=== PATIENT | male | born 1960 | race Caucasian/White ===

== ENCOUNTER 2024-05-09 20:45 | Inpatient (IN) | payer MEDICARE, OTHER ==
[~2024-05-09] VITALS: Ht 177.8 cm; Wt 74.8 kg
[2024-05-09 22:51] LABS: APPEARANCE,URINE CLEAR (CLEAR); BILIRUBIN,URINE NEGATIVE (NEGATIVE); BLOOD, URINE NEGATIVE Ery/uL (NEGATIVE); COLOR,URINE YELLOW (YELLOW); KETONES,URINE NEGATIVE (NEGATIVE); LEUKOCYTE ESTERASE ,URINE NEGATIVE (NEGATIVE); NITRITE, URINE NEGATIVE (NEGATIVE); PROTEIN,URINE NEGATIVE (NEGATIVE); UGLUCOSE NEGATIVE (NEGATIVE); UROBILINOGEN,URINE 0.2 EU/dL (0.2)
[2024-05-09 23:04] LABS: AMPHETAMINE, URINE NEGATIVE (NEGATIVE); BARBITURATE, URINE NEGATIVE (NEGATIVE); BENZODIAZEPINE, URINE NEGATIVE (NEGATIVE); CANNABINOID, URINE NEGATIVE (NEGATIVE); COCCAINE, URINE NEGATIVE (NEGATIVE); OPIATE, URINE NEGATIVE (NEGATIVE); PHENCYCLIDINE SCREEN,URINE NEGATIVE (NEGATIVE)
[2024-05-09] MEDS ORDERED: TRAZ-182 PO (23:35)
[2024-05-09] MEDS ORDERED: CARB1CAP7 PO (23:35)
[2024-05-09] MEDS ORDERED: MONT10TA22 PO (23:35)
[2024-05-10] MEDS ORDERED: TEMAZEPAM 7.5 MG CAPSULE PO PRN (01:30)
[2024-05-10] MEDS ORDERED: LORAZEPAM 0.5 MG TABLET PO PRN (01:30)
[2024-05-10] MEDS ORDERED: MAGNESIUM HYDROXIDE 30 ML UDC PO PRN (01:30)
[2024-05-10] MEDS ORDERED: ACETAMINOPHEN 325 MG TABLET PO PRN (01:30)
[2024-05-10] MEDS ORDERED: MAG HYDROX/AL HYDROX/SIMETH 30 ML UDC PO PRN (01:30)
[2024-05-10] MEDS: BLOOD SUGAR DIAGNOSTIC 1 EACH STRIP IN ONE (02:52)
[2024-05-10 08:00] VITALS: BP 154/87; TEMP 97.6; O2SAT 97
[2024-05-10 13:05] LABS: LACTIC ACID 0.9 mmol/L (0.4-2.0)
[2024-05-10] MEDS: LEVODOPA PO SCH (13:06)
[2024-05-10] MEDS: CARBIDOPA PO SCH (13:06)
[2024-05-10] MEDS: [UNRECOGNIZED DRUG - OTHER] PO SCH (13:06)
[2024-05-10] MEDS: DIVALPROEX SODIUM 125 MG TABLET.DR PO SCH (13:07)
[2024-05-10 13:51] LABS: BASOPHILS % (AUTO) 0.5 % (0.0-2.0); EOSINOPHILS % (AUTO) 0.4 % (0.0-6.0); HEMATOCRIT 43 % (39-51); HEMOGLOBIN 14.3 g/dL (13.5-17.5); LYMPHOCYTES # (AUTO) 1.3 K/uL (0.8-4.8); LYMPHOCYTES % (AUTO) 16.6 % (20.0-44.0); MEAN CORPUSCULAR HEMOGLOBIN 29 PG (26.0-33.0); MEAN CORPUSCULAR HGB CONC 34 g/dl (31.0-36.0); MEAN CORPUSCULAR VOLUME 87 fL (80-96); MONOCYTES # (AUTO) 0.6 K/uL (0.1-1.30); MONOCYTES % (AUTO) 7.3 % (2.0-12.0); NEUTROPHILS # (AUTO) 5.8 K/uL (1.8-8.9); NEUTROPHILS % (AUTO) 75.2 % (43.0-81.0); PLATELET COUNT (AUTO) 232 K/uL (150-450); RED BLOOD CELL COUNT(AUTO) 4.87 MIL/uL (4.5-6.0); RED CELL DISTRIBUTION WIDTH 13.6 % (11.5-15.0); WHITE BLOOD COUNT (AUTO) 7.7 K/uL (4.3-11.0)
[2024-05-10 16:00] VITALS: BP 124/90; TEMP 97.6; O2SAT 99
[2024-05-10 20:00] VITALS: BP 153/81; TEMP 97.8; O2SAT 99
[2024-05-10] MEDS: MONTELUKAST SODIUM (10MG) 10 MG TABLET PO SCH (21:37)
[2024-05-10] MEDS: QUETIAPINE FUMARATE 25 MG TABLET PO SCH (21:37)
[2024-05-11 07:07] LABS: BASOPHILS % (AUTO) 0.2 % (0.0-2.0); HEMATOCRIT 42 % (39-51); HEMOGLOBIN 14.2 g/dL (13.5-17.5); LYMPHOCYTES % (AUTO) 8.7 % (20.0-44.0); MEAN CORPUSCULAR HEMOGLOBIN 29 PG (26.0-33.0); MEAN CORPUSCULAR HGB CONC 34 g/dl (31.0-36.0); MEAN CORPUSCULAR VOLUME 87 fL (80-96); MONOCYTES # (AUTO) 0.5 K/uL (0.1-1.30); MONOCYTES % (AUTO) 4.5 % (2.0-12.0); NEUTROPHILS # (AUTO) 9.9 K/uL (1.8-8.9); NEUTROPHILS % (AUTO) 86.6 % (43.0-81.0); PLATELET COUNT (AUTO) 223 K/uL (150-450); RED BLOOD CELL COUNT(AUTO) 4.83 MIL/uL (4.5-6.0); RED CELL DISTRIBUTION WIDTH 13.5 % (11.5-15.0); WHITE BLOOD COUNT (AUTO) 11.4 K/uL (4.3-11.0)
[2024-05-11 07:12] LABS: CALCIUM, SERUM 9.1 mg/dL (8.5-10.1); CREATININE 0.8 mg/dL (0.6-1.3); POTASSIUM 4.2 mmol/L (3.5-5.1)
[2024-05-11 08:00] VITALS: BP_SYST 100; BP_SYST 150; BP_DIAS 59; BP_DIAS 93; TEMP 98; O2SAT 100; O2SAT 98
[2024-05-11 16:00] VITALS: BP 100/59; TEMP 98; O2SAT 100
[2024-05-11 19:18] LABS: BASOPHILS # (AUTO) 0.1 K/uL (0.0-0.2); BASOPHILS % (AUTO) 0.4 % (0.0-2.0); HEMATOCRIT 46 % (39-51); HEMOGLOBIN 15.3 g/dL (13.5-17.5); LYMPHOCYTES # (AUTO) 1.2 K/uL (0.8-4.8); LYMPHOCYTES % (AUTO) 7.2 % (20.0-44.0); MEAN CORPUSCULAR HEMOGLOBIN 30 PG (26.0-33.0); MEAN CORPUSCULAR HGB CONC 33 g/dl (31.0-36.0); MEAN CORPUSCULAR VOLUME 88 fL (80-96); MONOCYTES # (AUTO) 1.1 K/uL (0.1-1.30); MONOCYTES % (AUTO) 6.9 % (2.0-12.0); NEUTROPHILS # (AUTO) 13.7 K/uL (1.8-8.9); NEUTROPHILS % (AUTO) 85.5 % (43.0-81.0); PLATELET COUNT (AUTO) 250 K/uL (150-450); RED BLOOD CELL COUNT(AUTO) 5.18 MIL/uL (4.5-6.0); WHITE BLOOD COUNT (AUTO) 16.1 K/uL (4.3-11.0)
[2024-05-11 19:29] LABS: CALCIUM, SERUM 9.3 mg/dL (8.5-10.1); POTASSIUM 4.3 mmol/L (3.5-5.1)
[2024-05-11 21:11] VITALS: BP_SYST 110; BP_SYST 121; BP_DIAS 75; BP_DIAS 85; TEMP 98; TEMP 98.8; O2SAT 93; O2SAT 98
[2024-05-12] MEDS: IV NS 0.9% 1,000 ML BAG IV ONE (00:13)
[2024-05-12] MEDS: LEVOFLOXACIN (250MG) 250 MG TABLET PO SCH (00:17)
[2024-05-12 01:24] LABS: APPEARANCE,URINE CLEAR (CLEAR); BILIRUBIN,URINE 1+ (NEGATIVE); BLOOD, URINE NEGATIVE Ery/uL (NEGATIVE); COLOR,URINE YELLOW (YELLOW); KETONES,URINE 1+ mg/dL (NEGATIVE); LEUKOCYTE ESTERASE ,URINE NEGATIVE (NEGATIVE); NITRITE, URINE NEGATIVE (NEGATIVE); PROTEIN,URINE TRACE mg/dl (NEGATIVE); UGLUCOSE NEGATIVE (NEGATIVE)
[2024-05-12 01:51] LABS: ADD URINE CULTURE NO; BACTERIA,URINE None seen /HPF (None Seen); MUCUS,URINE Few /LPF (None Seen); RBC,URINE NONE SEEN /HPF (0-2); SQUAMOUS EPITHELIAL CELL,UR None Seen /HPF (None Seen); WBC,URINE NONE SEEN /HPF (0-3)
[2024-05-12 05:54] VITALS: BP 121/75; TEMP 98.8; O2SAT 98
[2024-05-12 08:24] VITALS: BP 134/80; TEMP 97.2; O2SAT 97
[2024-05-12 16:02] VITALS: BP 129/63; TEMP 97.9; O2SAT 95
[2024-05-12] MEDS: ENSURE ENLIVE 237 ML LIQUID (VANILLA) PO SCH (17:19)
[2024-05-12] MEDS: IV LR 1000 ML 1,000 ML IV ONE (19:53)
[2024-05-12 20:00] VITALS: BP 140/92; TEMP 97.6; O2SAT 95
[2024-05-12 20:19] VITALS: BP 140/92; TEMP 97.9; O2SAT 95
[2024-05-13 08:00] VITALS: BP 133/70; TEMP 98.8; O2SAT 98
[2024-05-13 09:33] LABS: BASOPHILS % (AUTO) 0.6 % (0.0-2.0); EOSINOPHILS % (AUTO) 0.5 % (0.0-6.0); HEMATOCRIT 41 % (39-51); HEMOGLOBIN 13.5 g/dL (13.5-17.5); LYMPHOCYTES # (AUTO) 1.1 K/uL (0.8-4.8); LYMPHOCYTES % (AUTO) 14.1 % (20.0-44.0); MEAN CORPUSCULAR HEMOGLOBIN 29 PG (26.0-33.0); MEAN CORPUSCULAR HGB CONC 33 g/dl (31.0-36.0); MEAN CORPUSCULAR VOLUME 89 fL (80-96); MONOCYTES # (AUTO) 0.6 K/uL (0.1-1.30); MONOCYTES % (AUTO) 8.5 % (2.0-12.0); NEUTROPHILS # (AUTO) 5.8 K/uL (1.8-8.9); NEUTROPHILS % (AUTO) 76.3 % (43.0-81.0); PLATELET COUNT (AUTO) 182 K/uL (150-450); RED BLOOD CELL COUNT(AUTO) 4.59 MIL/uL (4.5-6.0); RED CELL DISTRIBUTION WIDTH 13.7 % (11.5-15.0); WHITE BLOOD COUNT (AUTO) 7.6 K/uL (4.3-11.0)
[2024-05-13 10:04] LABS: ALBUMIN 3.1 g/dL (3.4-5.0); BILIRUBIN,TOTAL 0.9 mg/dL (0.2-1.0); CALCIUM, SERUM 8.8 mg/dL (8.5-10.1); CREATININE 0.6 mg/dL (0.6-1.3); POTASSIUM 3.7 mmol/L (3.5-5.1)
[2024-05-13] MEDS ORDERED: DIVA125T32 PO (13:29)
[2024-05-13] MEDS ORDERED: MAG30ORA PO (13:29)
[2024-05-13] MEDS ORDERED: TEMA7.5C12 PO (13:29)
[2024-05-13] MEDS ORDERED: NORM10004 IV (13:29)
[2024-05-13] MEDS ORDERED: LEVO500T90 PO (13:29)
[2024-05-13] MEDS ORDERED: QUET25TA PO (13:29)
[2024-05-13] MEDS ORDERED: LACT-246 PO (13:29)
[2024-05-13] MEDS ORDERED: [UNRECOGNIZED DRUG - CODE] IV (13:29)
[2024-05-13] MEDS ORDERED: MAGN400O6 PO (13:29)
[2024-05-13] MEDS ORDERED: ACET-868 PO (13:29)
[2024-05-13] MEDS ORDERED: LORA-258 PO (13:29)
== END 2024-05-13 13:18 | disposition short-term general hospital (02) | DRG 885 ==
LOC: ER 21:08 → GPS 23:51
PROVIDERS: ADMIT Psychiatry & Neurology Psychosomatic Medicine; ATTEND Student in an Organized Health Care Education/Training Program
DX: F29 Unspecified psychosis not due to a substance or known physiological condition (principal); F02.83 Dementia in other diseases classified elsewhere, unspecified severity, with mood disturbance; F02.82 Dementia in other diseases classified elsewhere, unspecified severity, with psychotic disturbance; J21.9 Acute bronchiolitis, unspecified; G20.A1 Parkinson's disease without dyskinesia, without mention of fluctuations; Z73.6 Limitation of activities due to disability; F39 Unspecified mood [affective] disorder; J45.909 Unspecified asthma, uncomplicated
CPT/HCPCS: 36415; 71045-TC; 80048-TC; 80053-TC; 80061-TC; 81001; 82550-TC; 82553; 82962-TC; 83605-TC; 84443-TC; 85025-TC; 87081-TC; 92526; 92611-TC; 97110-TC; 97116-TC; 97530-TC; A4223; A4349; J7030; J7120

== ENCOUNTER 2024-05-13 13:04 | Inpatient (IN) | payer MEDICARE, OTHER ==
[~2024-05-13] VITALS: Ht 177.8 cm; Wt 78.0 kg
[~2024-05-13 13:04] MED LIST: CARB1CAP7 PO; MONT10TA22 PO
[2024-05-13] MEDS ORDERED: QUET25TA PO (13:29)
[2024-05-13] MEDS ORDERED: MAG30ORA PO (13:29)
[2024-05-13] MEDS ORDERED: [UNRECOGNIZED DRUG - CODE] IV (13:29)
[2024-05-13] MEDS ORDERED: LACT-246 PO (13:29)
[2024-05-13] MEDS ORDERED: MAGN400O6 PO (13:29)
[2024-05-13] MEDS ORDERED: ACET-868 PO (13:29)
[2024-05-13] MEDS ORDERED: NORM10004 IV (13:29)
[2024-05-13] MEDS ORDERED: LORA-258 PO (13:29)
[2024-05-13] MEDS ORDERED: DIVA125T32 PO (13:29)
[2024-05-13] MEDS ORDERED: TEMA7.5C12 PO (13:29)
[2024-05-13] MEDS ORDERED: LEVO500T90 PO (13:29)
[2024-05-13 15:42] VITALS: BP 119/67; TEMP 97.7; O2SAT 97
[2024-05-13 16:00] VITALS: BP 109/91; TEMP 98.2; O2SAT 99
[2024-05-13] MEDS ORDERED: ONDANSETRON HCL/PF 4 MG/2 ML VIAL IVP PRN (16:30)
[2024-05-13] MEDS: ALBUTEROL FS 2.5 MG/3 ML VIAL.NEB NEB SCH (16:30)
[2024-05-13] MEDS ORDERED: ACETAMINOPHEN 325 MG TABLET PO PRN (16:30)
[2024-05-13] MEDS ORDERED: Z GUARD REMEDY 4 OZ OINT TP PRN (16:30)
[2024-05-13] MEDS: IPRATROPIUM NEB FS 0.5 MG/2.5 ML AMPUL.NEB NEB SCH (16:30)
[2024-05-13] MEDS: CARBIDOPA/LEV CR 50/200 MG 1 UDTAB.SA PO SCH (17:00)
[2024-05-13] MEDS: DOXYCYCLINE 100 MG in IV D5W 100 ML IV SCH (17:08)
[2024-05-13] MEDS: ENOXAPARIN SODIUM 40 MG/0.4 ML DISP.SYRIN SQ SCH (17:23)
[2024-05-13] MEDS: DIVALPROEX SODIUM 125 MG TABLET.DR PO SCH (17:24)
[2024-05-13] MEDS: ENSURE ENLIVE 237 ML LIQUID (VANILLA) PO SCH (18:22)
[2024-05-13] MEDS: CEFTRIAXONE 1 G in IV D5W 50 ML IV SCH (18:24)
[2024-05-13 19:20] VITALS: O2SAT 97
[2024-05-13 19:31] VITALS: O2SAT 97
[2024-05-13 19:33] VITALS: O2SAT 98
[2024-05-13 20:00] VITALS: BP 112/76; TEMP 97.8; O2SAT 100
[2024-05-13] MEDS: IV NS 0.9% 1,000 ML IV PRN (20:46)
[2024-05-13] MEDS: QUETIAPINE FUMARATE 25 MG TABLET PO SCH (21:08)
[2024-05-13] MEDS: MONTELUKAST SODIUM (10MG) 10 MG TABLET PO SCH (21:08)
[2024-05-13] MEDS ORDERED: TEMAZEPAM 7.5 MG CAPSULE PO PRN (22:00)
[2024-05-14] VITALS (7 sets, daily range): BP systolic 121–130; BP diastolic 73–86; TEMP 98.1–98.2; O2SAT 95–100
[2024-05-14 06:39] LABS: BASOPHILS % (AUTO) 0.4 % (0.0-2.0); EOSINOPHILS % (AUTO) 0.6 % (0.0-6.0); HEMATOCRIT 38 % (39-51); HEMOGLOBIN 12.9 g/dL (13.5-17.5); LYMPHOCYTES % (AUTO) 14.3 % (20.0-44.0); MEAN CORPUSCULAR HEMOGLOBIN 30 PG (26.0-33.0); MEAN CORPUSCULAR HGB CONC 34 g/dl (31.0-36.0); MEAN CORPUSCULAR VOLUME 88 fL (80-96); MONOCYTES # (AUTO) 0.5 K/uL (0.1-1.30); MONOCYTES % (AUTO) 7.6 % (2.0-12.0); NEUTROPHILS # (AUTO) 5.2 K/uL (1.8-8.9); NEUTROPHILS % (AUTO) 77.1 % (43.0-81.0); PLATELET COUNT (AUTO) 168 K/uL (150-450); RED BLOOD CELL COUNT(AUTO) 4.29 MIL/uL (4.5-6.0); RED CELL DISTRIBUTION WIDTH 13.5 % (11.5-15.0); WHITE BLOOD COUNT (AUTO) 6.8 K/uL (4.3-11.0)
[2024-05-14 07:07] LABS: CALCIUM, SERUM 8.8 mg/dL (8.5-10.1); CREATININE 0.6 mg/dL (0.6-1.3); MAGNESIUM 2.2 mg/dL (1.8-2.4); PHOSPHORUS 3.3 mg/dL (2.5-4.9); POTASSIUM 3.8 mmol/L (3.5-5.1)
[2024-05-14 08:13] LABS: THYROID STIMULATING HORMONE 0.76 uIU/mL (0.358-3.74)
[2024-05-14] MEDS: PANTOPRAZOLE 40 MG TABLET.DR PO SCH (08:45)
[2024-05-14] MEDS: risperiDONE 0.25 MG TABLET PO SCH (10:30)
[2024-05-14] MEDS: DOXYCYCLINE HYCLATE (100 MG) 100 MG TABLET PO SCH (22:08)
[2024-05-15 07:00] VITALS: BP 161/97; TEMP 98.1; O2SAT 100
[2024-05-15 07:42] VITALS: O2SAT 98
[2024-05-15] MEDS ORDERED: CLONIDINE HCL 0.1 MG TABLET PO PRN (10:00)
[2024-05-15 11:04] LABS: BASOPHILS % (AUTO) 0.4 % (0.0-2.0); EOSINOPHILS # (AUTO) 0.1 K/uL (0.0-0.7); EOSINOPHILS % (AUTO) 1.2 % (0.0-6.0); HEMATOCRIT 42 % (39-51); LYMPHOCYTES # (AUTO) 1.3 K/uL (0.8-4.8); LYMPHOCYTES % (AUTO) 19.5 % (20.0-44.0); MEAN CORPUSCULAR HEMOGLOBIN 29 PG (26.0-33.0); MEAN CORPUSCULAR HGB CONC 33 g/dl (31.0-36.0); MEAN CORPUSCULAR VOLUME 88 fL (80-96); MONOCYTES # (AUTO) 0.5 K/uL (0.1-1.30); MONOCYTES % (AUTO) 7.7 % (2.0-12.0); NEUTROPHILS # (AUTO) 4.6 K/uL (1.8-8.9); NEUTROPHILS % (AUTO) 71.2 % (43.0-81.0); PLATELET COUNT (AUTO) 192 K/uL (150-450); RED BLOOD CELL COUNT(AUTO) 4.77 MIL/uL (4.5-6.0); RED CELL DISTRIBUTION WIDTH 13.3 % (11.5-15.0); WHITE BLOOD COUNT (AUTO) 6.5 K/uL (4.3-11.0)
[2024-05-15 11:33] LABS: CALCIUM, SERUM 9.2 mg/dL (8.5-10.1); CREATININE 0.7 mg/dL (0.6-1.3); MAGNESIUM 2.1 mg/dL (1.8-2.4); PHOSPHORUS 2.4 mg/dL (2.5-4.9); POTASSIUM 3.4 mmol/L (3.5-5.1)
[2024-05-15 16:00] VITALS: BP 95/84; TEMP 97.7; O2SAT 98
[2024-05-15] MEDS: K PHOS NEUTRAL 250 MG TABLET PO ONE (16:14)
[2024-05-15] MEDS: POTASSIUM CHLORIDE 20 MEQ TAB.PRT.SR PO ONE (17:49)
[2024-05-15] MEDS ORDERED: LORAZEPAM INJ 2 MG/ML VIAL IM PRN (18:30)
[2024-05-15] MEDS: LORAZEPAM INJ 2 MG/ML VIAL IM ONE (18:53)
[2024-05-15 20:00] VITALS: BP 97/69; TEMP 97.7; O2SAT 100
[2024-05-15 20:01] VITALS: O2SAT 99
[2024-05-15 23:18] VITALS: O2SAT 99
[2024-05-16 07:02] LABS: BASOPHILS % (AUTO) 0.5 % (0.0-2.0); EOSINOPHILS # (AUTO) 0.1 K/uL (0.0-0.7); EOSINOPHILS % (AUTO) 1.7 % (0.0-6.0); HEMATOCRIT 42 % (39-51); LYMPHOCYTES # (AUTO) 0.9 K/uL (0.8-4.8); LYMPHOCYTES % (AUTO) 18.2 % (20.0-44.0); MEAN CORPUSCULAR HEMOGLOBIN 29 PG (26.0-33.0); MEAN CORPUSCULAR HGB CONC 34 g/dl (31.0-36.0); MEAN CORPUSCULAR VOLUME 86 fL (80-96); MONOCYTES # (AUTO) 0.4 K/uL (0.1-1.30); MONOCYTES % (AUTO) 8.3 % (2.0-12.0); NEUTROPHILS # (AUTO) 3.6 K/uL (1.8-8.9); NEUTROPHILS % (AUTO) 71.3 % (43.0-81.0); PLATELET COUNT (AUTO) 173 K/uL (150-450); RED BLOOD CELL COUNT(AUTO) 4.81 MIL/uL (4.5-6.0); RED CELL DISTRIBUTION WIDTH 13.2 % (11.5-15.0)
[2024-05-16 07:20] LABS: CALCIUM, SERUM 9.1 mg/dL (8.5-10.1); CREATININE 0.5 mg/dL (0.6-1.3); POTASSIUM 3.3 mmol/L (3.5-5.1)
[2024-05-16 10:26] VITALS: BP 143/90; TEMP 97.5; O2SAT 99
[2024-05-16] MEDS: risperiDONE 1 MG TABLET PO SCH (12:44)
[2024-05-16] MEDS: POTASSIUM CHLORIDE 20 MEQ TAB.PRT.SR PO SCH (14:29)
[2024-05-16] MEDS: LORAZEPAM 1 MG TABLET PO PRN (15:06)
[2024-05-16] MEDS ORDERED: OLANZAPINE 10 MG VIAL IM PRN (16:00)
[2024-05-16] MEDS ORDERED: PANT40TA49 PO (19:16)
[2024-05-16] MEDS ORDERED: ALBU2.5V13 NEB (19:16)
[2024-05-16] MEDS ORDERED: DOXY100T2 PO (19:16)
[2024-05-16] MEDS ORDERED: IPRA0.2S49 IH (19:16)
[2024-05-16] MEDS ORDERED: ENOX40DI SQ (19:16)
[2024-05-16] MEDS ORDERED: RISP0.5T65 PO (19:23)
== END 2024-05-16 18:24 | DRG 202 ==
LOC: MED 13:04
PROVIDERS: ADMIT Nurse Practitioner Acute Care; ATTEND Internal Medicine
DX: J20.9 Acute bronchitis, unspecified (principal); J96.01 Acute respiratory failure with hypoxia; F02.82 Dementia in other diseases classified elsewhere, unspecified severity, with psychotic disturbance; F02.83 Dementia in other diseases classified elsewhere, unspecified severity, with mood disturbance; G20.A1 Parkinson's disease without dyskinesia, without mention of fluctuations; E86.0 Dehydration; Z87.81 Personal history of (healed) traumatic fracture
CPT/HCPCS: 36415; 36600; 71045-TC; 80048-TC; 80061-TC; 82803-TC; 83540-TC; 83735-TC; 84100-TC; 84443-TC; 85025-TC; 92526; 92611-TC; 94760-TC; 94762-TC; 94799-TC; A4223; G0378; J0696; J1650; J2060; J3490; J7030; J7050; J7060

== ENCOUNTER 2024-05-16 18:36 | Inpatient (IN) | payer MEDICARE, OTHER ==
[~2024-05-16] VITALS: Ht 177.8 cm; Wt 78.0 kg
[~2024-05-16 18:36] MED LIST changes: +ACET-868 PO; +DIVA125T32 PO; +LACT-246 PO; +LEVO500T90 PO; +LORA-258 PO; +MAG30ORA PO; +MAGN400O6 PO; +NORM10004 IV; +QUET25TA PO; +TEMA7.5C12 PO; +[UNRECOGNIZED DRUG - CODE] IV
[2024-05-16] MEDS ORDERED: ACETAMINOPHEN 325 MG TABLET PO PRN (19:00)
[2024-05-16] MEDS ORDERED: MAG HYDROX/AL HYDROX/SIMETH 30 ML UDC PO PRN (19:00)
[2024-05-16] MEDS ORDERED: MAGNESIUM HYDROXIDE 30 ML UDC PO PRN (19:00)
[2024-05-16] MEDS ORDERED: TEMAZEPAM 7.5 MG CAPSULE PO PRN ×2 (19:00→22:00)
[2024-05-16] MEDS ORDERED: LORAZEPAM 0.5 MG TABLET PO PRN ×2 (19:00→22:00)
[2024-05-16 19:03] VITALS: BP 90/66; TEMP 97.5; O2SAT 97
[2024-05-16] MEDS ORDERED: ENOX40DI SQ (19:16)
[2024-05-16] MEDS ORDERED: ALBU2.5V13 NEB (19:16)
[2024-05-16] MEDS ORDERED: PANT40TA49 PO (19:16)
[2024-05-16] MEDS ORDERED: DOXY100T2 PO (19:16)
[2024-05-16] MEDS ORDERED: IPRA0.2S49 IH (19:16)
[2024-05-16] MEDS ORDERED: RISP0.5T65 PO (19:23)
[2024-05-16] MEDS: BLOOD SUGAR DIAGNOSTIC 1 EACH STRIP IN ONE (19:53)
[2024-05-16 20:00] VITALS: BP 118/77; TEMP 98.6; O2SAT 98
[2024-05-16] MEDS: ENSURE ENLIVE 237 ML LIQUID (VANILLA) PO SCH (22:00)
[2024-05-16] MEDS ORDERED: IPRATROPIUM NEB FS 0.5 MG/2.5 ML AMPUL.NEB IH SCH (22:00)
[2024-05-16] MEDS ORDERED: ALBUTEROL FS 2.5 MG/0.5 ML VIAL.NEB NEB SCH (22:00)
[2024-05-16] MEDS ORDERED: risperiDONE 0.25 MG TABLET PO SCH (23:30)
[2024-05-16] MEDS: MONTELUKAST SODIUM (10MG) 10 MG TABLET PO SCH (23:32)
[2024-05-16] MEDS: DIVALPROEX SODIUM 125 MG TABLET.DR PO SCH (23:33)
[2024-05-17] MEDS: ALBUTEROL FS 2.5 MG/0.5 ML VIAL.NEB NEB SCH (04:28)
[2024-05-17] MEDS: IPRATROPIUM NEB FS 0.5 MG/2.5 ML AMPUL.NEB IH SCH (04:28)
[2024-05-17] MEDS ORDERED: Z GUARD REMEDY 4 OZ OINT TP PRN (05:30)
[2024-05-17 08:00] VITALS: BP 145/92; TEMP 98; O2SAT 100
[2024-05-17 08:02] LABS: CREATININE 0.6 mg/dL (0.6-1.3)
[2024-05-17 08:09] LABS: CHOLESTEROL 127 mg/dL (<200); HDL CHOLESTEROL 50 mg/dL (40-60); LDL 60 mg/dL (0-99); TRIGLYCERIDES 106 mg/dL (30-150)
[2024-05-17 08:11] LABS: ALBUMIN 3.1 g/dL (3.4-5.0); BILIRUBIN,TOTAL 0.4 mg/dL (0.2-1.0); CALCIUM, SERUM 9.2 mg/dL (8.5-10.1); CREATININE 0.6 mg/dL (0.6-1.3); TOTAL PROTEIN, SERUM 6.9 g/dL (6.4-8.2)
[2024-05-17] MEDS: PANTOPRAZOLE 40 MG TABLET.DR PO SCH (09:00)
[2024-05-17] MEDS: ENOXAPARIN SODIUM 40 MG/0.4 ML DISP.SYRIN SQ SCH (09:00)
[2024-05-17] MEDS: Z GUARD REMEDY 4 OZ OINT TP SCH (09:07)
[2024-05-17] MEDS: LEVODOPA PO SCH (09:23)
[2024-05-17] MEDS: CARBIDOPA PO SCH (09:23)
[2024-05-17] MEDS: risperiDONE 1 MG TABLET PO SCH (10:30)
[2024-05-17 12:26] LABS: CREATINE KINASE, TOTAL 99 U/L (39-308)
[2024-05-17] MEDS: DIVALPROEX SODIUM 250 MG TABLET.DR PO SCH (13:07)
[2024-05-17 16:00] VITALS: BP 124/70; TEMP 98.9; O2SAT 99
[2024-05-17 20:00] VITALS: BP 138/86; TEMP 98.8; O2SAT 98
[2024-05-18 08:00] VITALS: BP 142/90; TEMP 97.5; O2SAT 92
[2024-05-18] MEDS: MUPIROCIN OINT 2% 22 GM TUBE TP SCH (09:33)
[2024-05-18 16:00] VITALS: BP 128/98; TEMP 97.5; O2SAT 98
[2024-05-18 21:06] VITALS: BP 126/90; TEMP 98; O2SAT 96
[2024-05-19 08:00] VITALS: BP 126/91; TEMP 97.9; O2SAT 100
[2024-05-19 11:06] LABS: FOLIC ACID 12.2 ng/mL (>3.0)
[2024-05-19 16:00] VITALS: BP 132/77; TEMP 97.8; O2SAT 98
[2024-05-20 08:00] VITALS: BP 135/91; TEMP 98; O2SAT 97
[2024-05-20 16:00] VITALS: BP 100/59; TEMP 98.2; O2SAT 99
[2024-05-20] MEDS: risperiDONE 1 MG TABLET PO SCH ×2 (16:52→21:48)
[2024-05-20] MEDS: DIVALPROEX SODIUM 250 MG TABLET.DR PO ONE (16:54)
[2024-05-20 20:19] VITALS: BP 94/61; TEMP 98; O2SAT 98
[2024-05-20] MEDS: DIVALPROEX SODIUM 500 MG TABLET.DR PO SCH (21:48)
[2024-05-21 08:00] VITALS: BP 139/96; TEMP 98.7; O2SAT 98
== END 2024-05-21 14:24 | DRG 885 ==
LOC: GPS 18:36
PROVIDERS: ADMIT Nurse Practitioner Psychiatric/Mental Health; ATTEND Internal Medicine
PROC: 0J9R0ZZ Drainage of Left Foot Subcutaneous Tissue and Fascia, Open Approach (ICD-10-PCS; principal; 2024-05-17)
DX: F29 Unspecified psychosis not due to a substance or known physiological condition (principal); F05 Delirium due to known physiological condition; F02.82 Dementia in other diseases classified elsewhere, unspecified severity, with psychotic disturbance; F02.818 Dementia in other diseases classified elsewhere, unspecified severity, with other behavioral disturbance; E87.20 Acidosis, unspecified; L03.116 Cellulitis of left lower limb; F02.80 Dementia in other diseases classified elsewhere, unspecified severity, without behavioral disturbance, psychotic disturbance, mood disturbance, and anxiety; G20.A1 Parkinson's disease without dyskinesia, without mention of fluctuations; Z20.822 Contact with and (suspected) exposure to COVID-19; Z73.6 Limitation of activities due to disability; F06.8 Other specified mental disorders due to known physiological condition; J40 Bronchitis, not specified as acute or chronic; E86.0 Dehydration; S90.822A Blister (nonthermal), left foot, initial encounter; X58.XXXA Exposure to other specified factors, initial encounter; Y92.9 Unspecified place or not applicable; R60.9 Edema, unspecified; Z79.51 Long term (current) use of inhaled steroids; Z79.01 Long term (current) use of anticoagulants; Z79.899 Other long term (current) drug therapy
CPT/HCPCS: 36415; 80053-TC; 80061-TC; 80164-TC; 82550-TC; 82565-TC; 82607-TC; 83921; J1650